=== PATIENT | male | born 1990 | race African-American/Black ===

== ENCOUNTER 2017-04-24 08:46 | Emergency (ER) | payer BC ==
[~2017-04-24] VITALS: Ht 177.8 cm; Wt 68.9 kg
[~2017-04-24 08:46] MED LIST: DIVA500T2 PO
[2017-04-24 09:30] VITALS: BP 127/60
--- NOTE | 2017-04-24 09:52 | RAD ---
PA AND LATERAL CHEST RADIOGRAPH Clinical Indication: cough and fever for 8 day. Hemoptysis. Comparison: Frontal chest from acute abdominal series 04/07/2010. Findings: The cardiomediastinal silhouette is normal. Pulmonary vasculature is normal. The lungs are clear. No pleural effusion or pneumothorax is seen. There is no acute bone abnormality. IMPRESSION: No acute cardiopulmonary process.
--- NOTE | 2017-04-24 09:57 | PHYS DOC ---
Past Medical History Past Medical History: Asthma, Seizure Additional Past Medical Histor: Epilepsy Past Surgical History: No Surgical History Alcohol Use: None Drug Use: Marijuana Adult General Chief Complaint Chief Complaint: COUGH HPI HPI Patient is a 26 year old male presents to the emergency department stating that he's had a cough and congestion for the last 8 days. Patient states he's been taking [id number] medications to help with cough with no relief. He also states he used an albuterol nebulizer treatment with no relief. Patient does state he has a history of asthma. Patient has also been having fevers. He has not taken anything for his to fever as of today. Review of Systems Review of Systems Constitutional: fever Eyes: Denies change in visual acuity, redness, or eye pain [] HENT: Denies nasal congestion or sore throat [] Respiratory: cough denies shortness of breath [] Cardiovascular: No additional information not addressed in HPI [] GI: Denies abdominal pain, nausea, vomiting, bloody stools or diarrhea [] : Denies dysuria or hematuria [] Musculoskeletal: Denies back pain or joint pain [] Integument: Denies rash or skin lesions [] Neurologic: Denies headache, focal weakness or sensory changes [] Endocrine: Denies polyuria or polydipsia [] All other systems were reviewed and found to be within normal limits, except as documented in this note. Current Medications Current Medications Current Medications Medications (Trade) Dose Ordered Sig/Amado Start Time Stop Time Status Last Admin Dose Admin Albuterol/ Ipratropium (Duoneb) 3 ml 1X ONCE 04/24/17 10:30 04/24/17 10:31 04/24/17 10:06 3 ML Prednisone (Prednisone) 40 mg 1X ONCE 04/24/17 10:30 04/24/17 10:31 04/24/17 10:16 40 MG Allergies Allergies Allergies Coded Allergies Type Severity Reaction Last Updated Verified No Known Drug Allergies 10/27/13 No Physical Exam Physical Exam Constitutional: Well developed, well nourished, no acute distress, non-toxic appearance. [] HENT: Normocephalic, atraumatic, bilateral external ears normal, oropharynx moist, no oral exudates, nose normal. Bilateral TM normal, throat with erythema , no exudate noted Eyes: PERRLA, EOMI, conjunctiva normal, no discharge. [] Neck: Normal range of motion, no tenderness, supple, no stridor. [] Cardiovascular:Heart rate regular rhythm, no murmur [] Lungs & Thorax: Bilateral breath sounds clear to auscultation [] Skin: Warm, dry, no erythema, no rash. [] Extremities: No tenderness, no cyanosis, no clubbing, ROM intact, no edema. [] Neurologic: Alert and oriented X 3, normal motor function, normal sensory function, no focal deficits noted. [] Psychologic: Affect normal, judgement normal, mood normal. [] Current Patient Data Vital Signs Vital Signs Date Time Temp Pulse Resp B/P (MAP) Pulse Ox O2 Delivery O2 Flow Rate FiO2 04/24/17 10:10 100 Room Air 04/24/17 09:30 100.1 86 20 100.1 EKG EKG [] Radiology/Procedures Radiology/Procedures [][facility] [address] [place] [address] IMAGING REPORT Signed PATIENT: TING RENE ACCOUNT: [id number] : 1990 LOCATION: ER AGE: 26 SEX: M EXAM STATUS: REG ER ORD. PHYSICIAN: DELMY MONAE APRN REASON: cough and fever for 8 day PROCEDURE: CHEST PA & LATERAL PA AND LATERAL CHEST RADIOGRAPH Clinical Indication: cough and fever for 8 day. Hemoptysis. Comparison: Frontal chest from acute abdominal series 04/07/2010. Findings: The cardiomediastinal silhouette is normal. Pulmonary vasculature is normal. The lungs are clear. No pleural effusion or pneumothorax is seen. There is no acute bone abnormality. IMPRESSION: No acute cardiopulmonary process. DICTATED and SIGNED BY: MOHINDER POP MD DATE: 04/24/17 0946 CC: DELMY MONAE APRN; TASNEEM ALCANTARA MD ~ Course & Med Decision Making Course & Med Decision Making Pertinent Labs and Imaging studies reviewed. (See chart for details) Patient was provided with duoneb treatment with patient stating that he feel better. He will be discharged home in stable condition with a prescription for Augmentin and prednisone. Family is requesting Albuterol nebulizer medication as they all have been using the treatments for cough and congestion and asthma. I've spoken with the patient and/or caregivers. I've explained the patient's condition, diagnosis and treatment plan based on information available to me at this time. I've answered the patient's and/or caregivers questions and addressed any concerns. The patient and/or caregivers have a good understanding the patient's diagnosis, condition and treatment plan as can be expected at this point. Vital signs have been stabilized. The patient's condition is stable for discharge from the emergency department. The patient will pursue further outpatient evaluation with her primary care provider or other designated consulting physician as outlined in the discharge instructions. Patient and/or caregivers are agreeable to this plan of care and follow-up instructions have been explained in detail. The patient and/or caregivers have received these instructions in written format and expressed understanding of these discharge instructions. The patient and her caregivers are aware that if any significant change in condition or worsening of symptoms should prompt him to immediately return to this of the closest emergency department. If an emergent department is not readily available I would encourage him to call 911. [] Dragon Disclaimer Dragon Disclaimer This electronic medical record was generated, in whole or in part, using a voice recognition dictation system. Departure Departure Impression: Primary Impression: URI (upper respiratory infection) Disposition: HOME, SELF-CARE Condition: STABLE Referrals: TASNEEM ALCANTARA MD (PCP) Patient Instructions: Upper Respiratory Infection, Adult, [id number] Additional Instructions: Activity as tolerated Medications as prescribed Tylenol or Ibuprofen for fever, chills or generalized body aches Drink plenty of fluids Followup with primary care provider in 3-5 days Return to emergency department as need for signs and symptoms that become worse. Scripts Albuterol Sulfate (ALBUTEROL SULFATE CONC NEB SOLN) 2.5 Mg/0.5 Ml Vial.neb 1 VIAL NEB Q6HRS, #60 VIAL 0 Refills Prov: DELMY MONAE APRN 04/24/17 Prednisone (PREDNISONE) 20 Mg Tablet 40 MG PO DAILY for 7 Days, #14 TAB Prov: DELMY MONAE APRN 04/24/17 Amoxicillin/Potassium Clav (AUGMENTIN 875-125 TABLET) 1 Each Tablet 1 TAB PO BID, #20 TAB Prov: DELMY MONAE APRN 04/24/17 Problem Qualifiers Primary Impression: URI (upper respiratory infection) URI type: unspecified URI Qualified Codes: J06.9 - Acute upper respiratory infection, unspecified DELMY MONAE TEXTILE SUPERVISOR Apr 24, 2017 09:57
[2017-04-24] MEDS ORDERED: AMOX1TAB61 PO (10:30)
[2017-04-24] MEDS ORDERED: predniSONE 20 MG TABLET PO ONE (10:30)
[2017-04-24] MEDS ORDERED: PRED20TA PO (10:30)
[2017-04-24] MEDS ORDERED: IPRATRPIUM/ALBUTEROL 0.5/2.5MG 3 ML NEBU. NEB ONE (10:30)
[2017-04-24] MEDS ORDERED: ALBU2.5V14 NEB (10:30)
[2017-04-24 13:22] LABS: NEGATIVE OBC STREP NEG; POSITIVE OBC STREP POS
== END 2017-04-24 10:37 | disposition home or self-care (01) ==
LOC: ER 08:46
DX: J06.9 Acute upper respiratory infection, unspecified (principal); J45.909 Unspecified asthma, uncomplicated; G40.909 Epilepsy, unspecified, not intractable, without status epilepticus
CPT/HCPCS: 71020; 87070; 87880; 94250; 94640; 99285; J7512; J7620

== ENCOUNTER 2020-01-19 10:43 | Emergency (ER) | payer BC, OTHER ==
[~2020-01-19] VITALS: Ht 180.3 cm; Wt 68.2 kg
[~2020-01-19 10:43] MED LIST changes: +ALBU2.5V14 NEB; +AMOX1TAB61 PO; +PRED20TA PO
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
[2020-01-19 12:14] VITALS: BP 87/49
[2020-01-19 12:47] LABS: VAL ACID 4 mcg/mL (50-100)
[2020-01-19 12:54] LABS: BILIRUBIN,URINE NEGATIVE (NEG); CLARITY,URINE CLEAR; COLOR,URINE YELLOW; NITRITE,URINE NEGATIVE (NEG); PROTEIN,URINE NEGATIVE (NEG-TRACE); UROBILINOGEN,URINE 0.2 mg/dL (0.2 mg/dL)
[2020-01-19 13:10] LABS: HYALINE CASTS, URINE FEW /HPF; SQUAMOUS EPITHELIAL CELL,UR OCC /LPF
[2020-01-19 13:11] LABS: AMORPHOUS SEDIMENT,UR PRESENT /HPF; BACTERIA,URINE 0 /HPF (0-FEW)
== END 2020-01-19 13:18 | disposition home or self-care (01) ==
LOC: ER 10:43
DX: G40.909 Epilepsy, unspecified, not intractable, without status epilepticus (principal); R51 Headache; M54.5 Low back pain; J45.909 Unspecified asthma, uncomplicated
CPT/HCPCS: 36415; 80164; 81001; 99283

== ENCOUNTER 2020-10-17 13:31 | Emergency (ER) | payer OTHER ==
[~2020-10-17] VITALS: Ht 180.3 cm; Wt 70.0 kg
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
[2020-10-17 14:25] LABS: BASO # 0.1 x10^3/uL (0.0-0.2); BASO % 2 % (0-3); EOS # 0.3 x10^3/uL (0.0-0.7); EOS % 4 % (0-3); HEMATOCRIT 44.3 % (39.0-53.0); HEMOGLOBIN 14.5 g/dL (13.0-17.5); LYMPH # 1.4 x10^3/uL (1.0-4.8); LYMPH % 18 % (24-48); MEAN CORPUSCULAR HEMOGLOBIN 29 pg (25-35); MEAN CORPUSCULAR HGB CONC 33 g/dL (31-37); MEAN CORPUSCULAR VOLUME 89 fL (79-100); MONO # 0.3 x10^3/uL (0.0-1.1); MONO % 4 % (0-9); NEUT # 5.5 x10^3/uL (1.8-7.7); NEUT % 72 % (31-73); PLATELET COUNT 197 x10^3/uL (140-400); RED BLOOD COUNT 4.98 x10^6/uL (4.30-5.70); RED CELL DISTRIBUTION WIDTH 13.5 % (11.5-14.5); WHITE BLOOD COUNT 7.7 x10^3/uL (4.0-11.0)
[2020-10-17 14:46] LABS: ANION GAP 8 (6-14); BLOOD UREA NITROGEN 17 mg/dL (8-26); BUN/CREATININE RATIO 17 (6-20); CALCIUM 8.9 mg/dL (8.5-10.1); CARBON DIOXIDE 30 mmol/L (21-32); CHLORIDE 103 mmol/L (98-107); GFR 107.7; GLUCOSE 90 mg/dL (70-99); POTASSIUM 4.6 mmol/L (3.5-5.1); SODIUM 141 mmol/L (136-145)
[2020-10-17 14:51] LABS: ALBUMIN 4.4 g/dL (3.4-5.0); ALBUMIN/GLOBULIN RATIO 1.3 (1.0-1.7); ALK PHOS 53 U/L (46-116); ALT (SGPT) 29 U/L (16-63); AST (SGOT) 23 U/L (15-37); TOTAL BILIRUBIN 0.2 mg/dL (0.2-1.0); TOTAL PROTEIN 7.7 g/dL (6.4-8.2)
[2020-10-17 15:01] LABS: BARBITURATES NEG (NEG); BENZODIAZEPINES NEG (NEG); CANNABINOIDS POS (NEG); COCAINE NEG (NEG); METHADONE NEG (NEG); OPIATES NEG (NEG); PHENCYCLIDINE NEG (NEG)
[2020-10-17 15:02] LABS: AMPHETAMINE/METHAMPHETAMINE NEG (NEG)
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
[2020-10-17 15:09] LABS: VAL ACID < 3 mcg/mL (50-100)
[2020-10-17] MEDS ORDERED: IV NORMAL SALINE 1000ML BAG 1,000 ML IV ONE (15:30)
[2020-10-17] MEDS ORDERED: DIVALPROEX DELAYED RELEASE 500 MG TABLET.DR. PO ONE (15:30)
[2020-10-17] MEDS ORDERED: DIVA500T2 PO (15:37)
[2020-10-17 16:04] VITALS: BP 122/79
--- NOTE | 2020-10-17 18:48 | EKG ---
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
== END 2020-10-17 16:25 | disposition home or self-care (01) ==
LOC: ER 13:31
DX: M25.512 Pain in left shoulder (principal); R51.9 Headache, unspecified; M54.2 Cervicalgia; G89.11 Acute pain due to trauma; G40.909 Epilepsy, unspecified, not intractable, without status epilepticus; J45.909 Unspecified asthma, uncomplicated; V87.7XXA Person injured in collision between other specified motor vehicles (traffic), initial encounter; Y93.89 Activity, other specified; Y92.488 Other paved roadways as the place of occurrence of the external cause; Y99.8 Other external cause status
CPT/HCPCS: 36415; 70450; 72125; 80053; 80164; 80307; 83605; 85025; 93005; 96360; 99285; J7030